=== PATIENT | female | born 1945 | race Caucasian/White ===

== ENCOUNTER 2022-06-22 05:56 | Inpatient (IN) | payer MEDICARE, OTHER ==
[2022-06-22] VITALS (12 sets, daily range): BP systolic 110–140; BP diastolic 54–78; PULSE 73–84; TEMP 97.9–98.8
[~2022-06-22] VITALS: Ht 154.9 cm; Wt 74.2 kg
[2022-06-22 06:23] LABS: HEMOGLOBIN 12.4 g/dl (12.5-16.0); MEAN CELL VOLUME 86 fl (80.0-100.0); MEAN CORPUSCULAR HEMOGLOBIN 29 pg (27-31); MEAN CORPUSCULAR HGB CONC 34 g/dl (33.0-37.0); PLATELET COUNT 272 K/mm3 (130-400); RED BLOOD COUNT 4.23 M/mm3 (4.10-5.30); REDCELL DISTRIBUTION WIDTH-CV 13.4 % (11.5-14.5)
[2022-06-22 06:24] LABS: HEMATOCRIT 36.4 % (37.0-47.0)
[2022-06-22 06:39] LABS: BILIRUBIN,TOTAL 0.5 mg/dL (0.2-1.2); CREATININE, serum 0.96 mg/dL (0.57-1.11); TOTAL PROTEIN 7.1 gm/dL (6.2-8.1)
[2022-06-22 06:43] LABS: INR 1.2 (0.8-3.0); PROTHROMBIN TIME 13.6 SECONDS (9.7-12.8)
[2022-06-22 06:46] LABS: PARTIAL THROMBOPLASTIN TIME 29.3 SECONDS (26.0-37.0)
[2022-06-22 07:01] LABS: BAND 3 % (0-10); LYMPHOCYTE 3 % (20.0-51.0); NEUTROPHILS 92 % (42.0-75.2)
[2022-06-22 07:02] LABS: PLATELET ESTIMATE NORMAL (NORMAL)
[2022-06-22 07:03] LABS: OVALOCYTES 1+
[2022-06-22 07:04] LABS: POIKILOCYTOSIS 1+
[2022-06-22] MEDS ORDERED: GLUCOPHAGE500 MG/TAB PO (07:08)
[2022-06-22] MEDS ORDERED: ZESTRIL 5MG5 MG PO (07:08)
[2022-06-22] MEDS ORDERED: MEVACOR 20M20 MG/TAB PO (07:09)
[2022-06-22] MEDS ORDERED: PLAVIX 75MG TAB75 MG PO (07:09)
[2022-06-22] MEDS ORDERED: TYLENOL 325MG325 MG (07:10)
--- NOTE | 2022-06-22 09:15 | NUR ---
PATIENT ADMITED INTO ROOM 331 FROM ER WITH C/O GI BLEED. PATIENT REPORTS BLOOD IN HER VOMIT WITH CLOTS YESTERDAY. HX OF PLAVIX. NPO. GI CONSULT, SEEN IN ER. PLAN FOR EGD TODAY. IV FLUIDS INFUSING VIA PUMP INTO RIGHT AC IV. ORIENTED TO ROOM. AT BEDSIDE. NO OTHER NEEDS. CALL LIGHT IN REACH.
--- NOTE | 2022-06-22 11:10 | NUR ---
SW met with the patient to discuss discharge plan. The patient lives in [place] with her , Kedar (ph#[phone]). She reports independence with ADLs and has a walker available, if needed. The patient's PCP is Dr. Lauren Singh and she receives her medications from the [facility] in [place]. The patient does not have a DPOA-HC yet, but she states that she has an consumer services consultant that should be finalizing a Living Will and DPOA-HC for her and her soon. The patient plans to return home with her upon discharge. No additional needs at this time. *Discharge plan: home with *
--- NOTE | 2022-06-22 11:20 | NUR ---
CONSENT OBTAINED, REPORT GIVEN TO ENDO NURSE, AND PRE-OP CHECKLIST ON CHART. IV TO GRAVITY. PATIENT NOW GOING DOWN FOR EGD.
--- NOTE | 2022-06-22 12:22 | NUR ---
ENDO CALLED REPORT. PATIENT GOING STRAIGHT FROM ENDO TO CT FOR SCAN.
--- NOTE | 2022-06-22 14:20 | NUR ---
CT RESULTS CALLED TO HOSPITALIST, SEE ORDERS.
[2022-06-22 18:09] LABS: HEMATOCRIT 33.7 % (37.0-47.0); HEMOGLOBIN 11.1 g/dl (12.5-16.0)
--- NOTE | 2022-06-22 21:53 | NUR ---
Patient A/Ox4, VSS, NAD, IV infusing well to RAC, denies nausea or vomiting, tolerated her clear liquid diet, denies pain, call light and personal items within reach, call light and personal items within reach, up ad jc in room, will continue to monitor.
[2022-06-23 04:05] VITALS: BP 138/70; PULSE 80; TEMP 97.5
--- NOTE | 2022-06-23 04:44 | NUR ---
Patient verbalized she has a faint headache but denies the need for medicine at this time, will continue to monitor.
[2022-06-23 06:42] LABS: BASO % 0.7 % (0.0-2.0); EOS % 0.7 % (0.0-4.0); GRAN # 4.2 K/mm3 (1.4-6.5); LYMPH # 1.4 K/mm3 (1.2-3.4); LYMPH % 23.5 % (20.0-51.0); MEAN CELL VOLUME 89 fl (80.0-100.0); MEAN CORPUSCULAR HEMOGLOBIN 30 pg (27-31); MEAN CORPUSCULAR HGB CONC 33 g/dl (33.0-37.0); MEAN PLATELET VOLUME 10.3 fl (7.4-10.4); MONO # 0.4 K/mm3 (0.1-0.6); MONO % 5.9 % (1.7-9.3); PLATELET COUNT 231 K/mm3 (130-400); RED BLOOD COUNT 3.39 M/mm3 (4.10-5.30); REDCELL DISTRIBUTION WIDTH-CV 13.6 % (11.5-14.5)
[2022-06-23 06:55] LABS: CALCIUM 8.6 mg/dL (8.4-10.2); CREATININE, serum 0.8 mg/dL (0.57-1.11); POTASSIUM 3.7 mmol/L (3.5-4.5)
[2022-06-23 07:39] VITALS: BP 114/44; BP 150/77; PULSE 60; PULSE 75; TEMP 98.8; TEMP 99.3
--- NOTE | 2022-06-23 08:20 | NUR ---
Pt was hoping to have surgery today. Dr Hylton did call and advance her diet to full liquids. Educated pt on diet and how to order. Pts spouse is at bedside. Pt has no complaints of pain and stated that she had a good night
--- NOTE | 2022-06-23 09:58 | NUR ---
Pt tolerated her full liquids for breakfast. Stated that she could not eat much, but is not nauseated at this time. Pts daughter is present in the room. No questions at this time
--- NOTE | 2022-06-23 10:52 | NUR ---
Initial visit; Patient and family thanked Fireperson for looking in on her and offering God' blessings. Patient said they postponed her surgical procedure so Fireperson will continue to look in on her while she is a patient here.
--- NOTE | 2022-06-23 11:45 | NUR ---
Pt has been up walking several times this morning. Pt reported that she feels more weak than normal. Encouraged her to rest some before walking again. Shortly after, pt was up walking in the halls. Pt came over and stated that she does feel a little short of breath. Informed her to head back to her room and we would take her vital signs. Pt stated that she was okay, but just wanted to let me know. Stated that she still needed to go back to her room if she is feeling short of breath. Once pt returned to her room, she did have a very small soft formed bowel movement.
[2022-06-23 12:00] VITALS: BP 154/62; PULSE 70; TEMP 98.9
--- NOTE | 2022-06-23 13:56 | NUR ---
Pt continues to be up independently. Dr Hylton has been in to see pt. Keeping pt NPO with plans for possible surgery this afternoon. Pt denies any needs or questions, call light within reach
[2022-06-23 17:13] VITALS: BP 146/75; PULSE 73; TEMP 98.2
--- NOTE | 2022-06-23 17:30 | NUR ---
Pt updated that she can have clear liquids tonight as they are not going to do surgery until tomorrow. Pt was okay with this. Pts daughter and were present in the room. Clear liquid tray ordered for her
[2022-06-23 19:34] VITALS: BP 142/84; PULSE 93; TEMP 97.9
[2022-06-23 21:50] LABS: HEMOGLOBIN 10.1 g/dl (12.5-16.0)
[2022-06-23 21:53] LABS: HEMATOCRIT 30.7 % (37.0-47.0)
[2022-06-23 23:29] VITALS: BP 157/69; PULSE 70; TEMP 97.6
[2022-06-24] VITALS (15 sets, daily range): BP systolic 107–160; BP diastolic 48–116; PULSE 64–98; TEMP 97.6–98.4
--- NOTE | 2022-06-24 06:25 | NUR ---
BG OBTAINED AT APRROXIMATELY 0400, FOUND TO BE 70, PT IS NPO FOR SURG TODAY. HOSPITALIST NOTIFIED CHANGED FLUIDS TO D5NS.
--- NOTE | 2022-06-24 07:42 | NUR ---
Received shift report from the assistant shift supervisor nurse, RN
--- NOTE | 2022-06-24 11:37 | NUR ---
Patient resting in bed and easily to arounse. IVF infusing. VSS. Patient denies of abdominal discomfort. See process intervention for notes.
[2022-06-24 14:35] LABS: HEMOGLOBIN 10.9 g/dl (12.5-16.0)
[2022-06-24 14:36] LABS: HEMATOCRIT 32.8 % (37.0-47.0)
--- NOTE | 2022-06-24 16:45 | NUR ---
Patient left the unit for OR.
--- NOTE | 2022-06-24 20:25 | NUR ---
PT BACK FROM SURGERY, IN ROOM. PT REPORTS BEING "LOOPY". DENIES PN. X6 LAP SITES CDI.
[2022-06-25 04:46] VITALS: BP 151/65; PULSE 56; TEMP 97.6
[2022-06-25 06:28] LABS: BASO % 0.1 % (0.0-2.0); GRAN # 6.8 K/mm3 (1.4-6.5); GRAN % 89.4 % (42.2-75.2); HEMOGLOBIN 10.5 g/dl (12.5-16.0); LYMPH # 0.6 K/mm3 (1.2-3.4); MEAN CELL VOLUME 88 fl (80.0-100.0); MEAN CORPUSCULAR HEMOGLOBIN 30 pg (27-31); MEAN CORPUSCULAR HGB CONC 34 g/dl (33.0-37.0); MEAN PLATELET VOLUME 10.6 fl (7.4-10.4); MONO # 0.2 K/mm3 (0.1-0.6); MONO % 2.1 % (1.7-9.3); PLATELET COUNT 229 K/mm3 (130-400); REDCELL DISTRIBUTION WIDTH-CV 13.4 % (11.5-14.5)
[2022-06-25 06:37] LABS: HEMATOCRIT 30.9 % (37.0-47.0)
[2022-06-25 06:49] LABS: ALBUMIN 3.4 gm/dL (3.4-4.8); CALCIUM 8.4 mg/dL (8.4-10.2); CREATININE, serum 0.9 mg/dL (0.57-1.11); MAGNESIUM 1.1 mg/dL (1.6-2.6); PHOSPHOROUS 3.7 mg/dL (2.3-4.7); POTASSIUM 3.7 mmol/L (3.5-4.5)
--- NOTE | 2022-06-25 08:56 | NUR ---
Received shift report from the hematology oncology consultant nurse, Gem Barraza RN
[2022-06-25 09:19] VITALS: BP 144/52; PULSE 69; TEMP 98
[2022-06-25] MEDS ORDERED: PROTONIX 40MG T40 MG PO ×3 (09:31→09:32)
--- NOTE | 2022-06-25 11:05 | NUR ---
Patient states she is doing up and about walking in the hallway. Incision site dry and intact. No reddness noted. Patient denies pain at this time.
--- NOTE | 2022-06-25 12:01 | NUR ---
Discharge instruction given to patient. Patient verbalized understanding. Patient has no other questions. INT discontinued. Patient escorted to the Patient entrance via wheel chair accompanied by family members.
== END 2022-06-25 11:30 | disposition home or self-care (01) | DRG 327 ==
LOC: COL.ER 05:56 → SURG 07:52
PROVIDERS: Emergency Medicine; Internal Medicine; Surgery; ADMIT Student in an Organized Health Care Education/Training Program
PROC: 0DJ08ZZ Inspection of Upper Intestinal Tract, Via Natural or Artificial Opening Endoscopic (ICD-10-PCS; 2022-06-22)
PROC: 0DQ64ZZ Repair Stomach, Percutaneous Endoscopic Approach (ICD-10-PCS; 2022-06-24)
PROC: 8E0W4CZ Robotic Assisted Procedure of Trunk Region, Percutaneous Endoscopic Approach (ICD-10-PCS; 2022-06-24)
PROC: 0BQT4ZZ Repair Diaphragm, Percutaneous Endoscopic Approach (ICD-10-PCS; principal; 2022-06-24 16:00)
DX: K44.9 Diaphragmatic hernia without obstruction or gangrene (principal); D62 Acute posthemorrhagic anemia; K31.89 Other diseases of stomach and duodenum; E78.5 Hyperlipidemia, unspecified; E11.9 Type 2 diabetes mellitus without complications; I72.8 Aneurysm of other specified arteries; I10 Essential (primary) hypertension; Z90.89 Acquired absence of other organs; Z79.01 Long term (current) use of anticoagulants; Z86.73 Personal history of transient ischemic attack (TIA), and cerebral infarction without residual deficits; Z79.84 Long term (current) use of oral hypoglycemic drugs; Z23 Encounter for immunization
CPT/HCPCS: OP; C9113; G0378; J0690; J1100; J1170; J2405; J2704; J3010; J7030; J7042

== ENCOUNTER 2023-12-12 07:28 | Day surgery (SDC) | payer MEDICARE, OTHER ==
[2023-12-12] VITALS (13 sets, daily range): BP systolic 110–152; BP diastolic 67–83; PULSE 77–94; TEMP 97.4–98.5
[~2023-12-12] VITALS: Ht 154.9 cm; Wt 52.7 kg
[~2023-12-12 07:28] MED LIST: GLUCOPHAGE500 MG/TAB PO; MEVACOR 20M20 MG/TAB PO; PLAVIX 75MG TAB75 MG PO; PROTONIX 40MG T40 MG PO; TYLENOL 325MG325 MG; ZESTRIL 5MG5 MG PO
[2023-12-12] MEDS ORDERED: LR 1,000 ML IV SCH ×2 (08:00→11:15)
[2023-12-12] MEDS ORDERED: MULTIVITAMIN FO1 CAP PO (08:20)
[2023-12-12] MEDS ORDERED: ICAPS AREDS SO1 EACH PO (08:20)
--- NOTE | 2023-12-12 09:02 | NUR ---
0800 Patient ambulatory to bay 1 with a steady gait, breathing even and unlabored. Patient is alert and oriented, accompanied by her . Consents reviewed and signed by patient. IV established. LR infusing via dial a flow at KVO. Call light in reach. Warm blanket provided.
[2023-12-12] MEDS ORDERED: fentaNYL 50 MCG/ML 2 ML VIAL ONE (09:34)
[2023-12-12] MEDS ORDERED: NS 10 ML VIAL IJ ONE ×2 (09:55)
[2023-12-12] MEDS ORDERED: Lidocaine 1% w EPI (1:100,000) 20 ML Multi-Dose VIAL SQ ONE ×2 (09:55)
[2023-12-12] MEDS ORDERED: Ondansetron 4 MG/2 ML VIAL ONE (10:41)
[2023-12-12] MEDS ORDERED: Lidocaine PF 2% (20 MG/ML) 5 ML VIAL ONE (10:41)
[2023-12-12] MEDS ORDERED: Morphine 4 MG/ML VIAL IV PRN (11:15)
[2023-12-12] MEDS ORDERED: fentaNYL 50 MCG/ML 1 ML SYRINGE/VIAL [PACU/SDC ONLY] IV PRN (11:15)
[2023-12-12] MEDS ORDERED: oxyCODONE 5 MG TAB PO PRN (11:15)
[2023-12-12] MEDS ORDERED: Ondansetron 4 MG/2 ML VIAL IV PRN ×2 (11:15)
[2023-12-12] MEDS ORDERED: Naloxone 0.4 MG/ML VIAL IV PRN (11:15)
--- NOTE | 2023-12-12 11:40 | NUR ---
Pt arrived to the floor recently from [facility]. Pt is alert and oriented, slightly forgetful at this time. I did place bed alarm on. Oriented her to her room and educated her on room service. Very small amount of blood on her peripad. VSS. I gave her ice water at this time. SCDs on bilaterally. IVF infusing to her left forearm.
[2023-12-12] MEDS ORDERED: Acetaminophen 500 MG TAB PO SCH (12:00)
--- NOTE | 2023-12-12 12:52 | NUR ---
PT continues to do well. Assisted her to the restroom and then to sit up in the chair. Pt did order some lunch which has arrived at this time. Spouse at bedside. Placed chair alarm on chair which is on. Again had to remind pt to notify nursing when she needs to get up since she still has post op vitals going. No other needs verbalized
--- NOTE | 2023-12-12 19:22 | NUR ---
report received from ez armstrong. pt resting in bed watching tv. pt denies pain. call light in reach. all needs met at this time.
[2023-12-12] MEDS ORDERED: Docusate Sodium 100 MG CAP PO SCH (21:00)
--- NOTE | 2023-12-12 22:12 | NUR ---
shift assessment complete, see documentation. pt tolerated hs meds well. pt ambulating ind without issue. call light in reach. all needs met at this time.
[2023-12-13] VITALS: BP 100/57; PULSE 84; TEMP 97.4
[2023-12-13 01:13] VITALS: BP_SYST 100
[2023-12-13 04:00] VITALS: BP 115/71; PULSE 68; TEMP 98
[2023-12-13 05:07] VITALS: BP_SYST 115
[2023-12-13 08:00] VITALS: BP 115/70; PULSE 70; TEMP 97.9
[2023-12-13 09:00] VITALS: BP_SYST 115
--- NOTE | 2023-12-13 09:30 | NUR ---
pt dressed and ready for discharge. INT discontinued. pt denies pain. discharge instructions given to pt and son, all questions answered. escorted to personal vehicle by wheelchair.
== END 2023-12-13 09:35 | disposition home or self-care (01) ==
LOC: SDCO 07:28 → SURG 11:25 → SDCO 12-13 09:35
DX: N81.2 Incomplete uterovaginal prolapse (principal); E11.22 Type 2 diabetes mellitus with diabetic chronic kidney disease; D63.1 Anemia in chronic kidney disease; N18.9 Chronic kidney disease, unspecified; Z78.0 Asymptomatic menopausal state; Z79.899 Other long term (current) drug therapy
CPT/HCPCS: OP; J2405; J2704; J3010; J7120